=== PATIENT | female | born 1940 | race Caucasian/White ===

== ENCOUNTER 2025-04-07 12:22 | Emergency (ER) | payer MEDICARE, MEDICAID ==
[~2025-04-07] VITALS: Ht 162.6 cm; Wt 70.9 kg
[~2025-04-07 12:22] MED LIST: ACET80DR PO; CEPH-558 PO; WARF2TAB10 PO
[2025-04-07 12:40] VITALS: TEMP 98.1
[2025-04-07] MEDS ORDERED: METO-325 PO (12:47)
[2025-04-07] MEDS: LIDOCAINE 5% TRANSDERMAL PATCH TD ONE (14:10)
[2025-04-07] MEDS: KETOROLAC TROMETHAMINE 30 MG/ML VIAL IM ONE (14:10)
[2025-04-07] MEDS ORDERED: IBUP-1492 PO (18:05)
[2025-04-07 18:15] VITALS: BP 153/95; PULSE 72; RESP 16; O2SAT 98
== END 2025-04-07 18:20 | disposition home or self-care (01) ==
LOC: EMS 14:32
DX: S20.211A Contusion of right front wall of thorax, initial encounter (principal); I10 Essential (primary) hypertension; Z79.899 Other long term (current) drug therapy; W06.XXXA Fall from bed, initial encounter; Y93.89 Activity, other specified; Y92.89 Other specified places as the place of occurrence of the external cause; Y99.8 Other external cause status
CPT/HCPCS: 71101; 99283; J1885